=== PATIENT | male | born 1990 | race Hispanic/Latino ===

== ENCOUNTER 2018-05-10 22:09 | Emergency (ER) | payer MEDICARE ==
[2018-05-10] MEDS ORDERED: DEXAMETHASONE SOD PHOSPHATE 10MG/ML 1ML VIAL ONE (23:15)
[2018-05-10] MEDS ORDERED: KETOROLAC TROMETHAMINE 30MG/ML ONE (23:15)
== END 2018-05-10 23:23 | disposition home or self-care (01) ==
LOC: EDH 22:09
DX: M25.511 Pain in right shoulder (principal)
CPT/HCPCS: 96372 ×2; 99284; J1100; J1885

== ENCOUNTER 2025-02-01 12:28 | Emergency (ER) | payer MEDICARE ==
[~2025-02-01] VITALS: Ht 172.7 cm; Wt 95.3 kg
[2025-02-01 12:46] VITALS: PULSE 81
--- NOTE | 2025-02-01 13:58 | ERN ---
ED Note History of Present Illness Stated Complaint: BACK PAIN Chief Complaint: Back Pain or Injury Time Seen by MD: 13:30 Time Seen by Midlevel: 13:31 Dictation: 34-year-old male who presents to the emergency department due to reported having lower back pain that began yesterday. He states that he was in the process of lifting a carriage in an awkward position when he felt the sharp pain. At this time, he rates pain level as a 10/10. Patient denies having any loss of bowel or bladder and maintains a normal neurological function to both lower extremities. He states that the pain is sharp and with a spasm type of sensation. 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 Past Medical History Past Medical History: No Pertinent History Surgical History: Other Surgical History Other: FACE, LEFT SIDE OF ABD PSYCH History: no pertinent psych hx RN Note Reviewed/Agreed w/PFSH: Yes Review of System Dictation MS/Extremity: Back pain Initial Vital Sign VS Vital Signs Date Time Temp Pulse Resp B/P (MAP) Pulse Ox O2 Delivery O2 Flow Rate FiO2 02/01/25 12:30 98.2 81 16 139/77 98 Room Air 0 02/01/25 12:46 21 Physical Exam Dictation General: awake, alert, NAD Head/Face: Normocephalic, atraumatic Eyes: PERRL, EOMI ENT: Oral mucosa moist Neck: Trachea midline, supple Cardiovascular: RRR, no edema Respiratory: Symmetrical, non-labored Abdomen: Soft, non-tender, non-distended, no guarding. Skin: Warm, dry, good turgor, no rash MS/Extremity: Pulses equal, no cyanosis, neurovascular intact, FROM Back:: Bilateral paraspinal tenderness, no vertebral tenderness. Neuro: COAx4, GCS 15, steady gait, Psych: Normal behavior, mood, and affect normal ED Course ED Course Orders Procedure Category Date Status Time Ketorolac 60mg/2ml PHA 02/01/25 Complete (Toradol 60mg/2ml) 14:00 Dexamethasone 4mg/Ml PHA 02/01/25 Complete 1ml Vial (Dexametha 14:00 Current Medications Medications (Trade) Dose Ordered Sig/Daniele Route PRN Reason Start Time Stop Time Status Last Admin Dose Admin Dexamethasone Sodium Phosphate (dexaMETHasone 4MG/ML 1ML VIAL) 8 mg ONCE ONCE IM 02/01/25 14:00 02/01/25 14:01 DC 02/01/25 14:08 Ketorolac Tromethamine (toRADol 60MG/ 2ML) 60 mg ONCE ONCE IM 02/01/25 14:00 02/01/25 14:01 DC 02/01/25 14:07 Vital Signs Date Time Temp Pulse Resp B/P (MAP) Pulse Ox O2 Delivery O2 Flow Rate FiO2 02/01/25 12:46 98.2 81 16 139/77 98 Room Air* 0 21 02/01/25 12:30 98.2 81 16 139/77 98 Room Air 0 Medical Decision Making MDM MDM: Differential diagnosis: Acute low back pain, lumbar back sprain, sciatica. Rationale: Tests considered and ordered secondary to shared decision making include: Previous outside records reviewed: Old ER visits. Risk of complication and/or morbidity or mortality of patient management: None Medications-Per medication reconciliation Need for hospitalization: Patient does not meet criteria for hospitalization. Need for emergency major/minor surgery: No There are no social concerns with this patient. Prescription drug management Prescriptions will include symptomatic care Patient's prior external medical records from other ER visits were reviewed by me as indicated. Prior testing and results from previous visits were reviewed. Prior tests were taken into account with medical decision making and resource utilization, independent historian/historians were used to obtain complete medical history. I independently interpreted the test that were performed, results were reviewed by me and considered findings on radiology if ordered. Medical management and examination interpretation discussions were had by me with other qualified healthcare professionals as indicated for the patient's care. DX & DISP Disposition: Discharge Departure Impression: Primary Impression: Lumbar back sprain Condition: Stable Scripts Ibuprofen (Ibuprofen 800 mg Tab) 800 Mg Tab 1 TAB PO TID for pain for 10 Days, #30 TAB 0 Refills Prov: NÉSTOR SILVA 02/01/25 Cyclobenzaprine HCl (Cyclobenzaprine HCl) 10 Mg Tablet 1 TAB PO TID for muscle spasms for 3 Days, #30 TAB 0 Refills Prov: NÉSTOR SILVA 02/01/25 Referrals: SELF,REFERRAL (PCP) NÉSTOR SILVA Feb 01, 2025 13:58
[2025-02-01] MEDS ORDERED: CYCL-309 PO (14:47)
[2025-02-01] MEDS ORDERED: IBUP-2077 PO (14:47)
[2025-02-01 14:49] VITALS: BP 132/74; RESP 16; TEMP 98.2; O2SAT 98
== END 2025-02-01 15:00 | disposition home or self-care (01) ==
LOC: EDH 12:28
DX: S33.5XXA Sprain of ligaments of lumbar spine, initial encounter (principal); X50.0XXA Overexertion from strenuous movement or load, initial encounter; Y93.89 Activity, other specified; Y92.89 Other specified places as the place of occurrence of the external cause; Y99.8 Other external cause status
CPT/HCPCS: 99284; 96372 ×2; J1885; J1100

== ENCOUNTER 2025-05-06 08:29 | Emergency (ER) | payer MEDICARE ==
[~2025-05-06] VITALS: Ht 172.7 cm; Wt 88.5 kg
[~2025-05-06 08:29] MED LIST: CYCL-309 PO; IBUP-2077 PO
[2025-05-06 08:30] VITALS: BP 138/88; PULSE 94; RESP 18; TEMP 98.4
[2025-05-06 08:51] LABS: APPEARANCE,URINE CLEAR (CLEAR); GLUCOSE, URINE (UA) NEGATIVE (NEGATIVE); LEUKOCYTE ESTERASE ,URINE NEGATIVE Leu/uL (NEGATIVE); NITRATE,URINE NEGATIVE (NEGATIVE); OCCULT BLOOD,URINE NEGATIVE (NEGATIVE)
[2025-05-06 08:53] LABS: ADD UA MICROSCOPIC YES
[2025-05-06 08:54] LABS: SQUAMOUS EPITHELIAL CELL,UR RARE /HPF (0-2)
[2025-05-06] MEDS: AZITHROMYCIN 250 MG TABLET PO STA (09:05)
--- NOTE | 2025-05-06 09:57 | ERN ---
ED Note History of Present Illness Stated Complaint: BLOOD IN URINE Chief Complaint: Blood in Urine: Time Seen by MD: 08:44 Dictation: 35-year-old male presenting to the emergency department with brief episode of blood in urine and concern for STD patient reports she had intercourse last night. Unprotected. No other symptoms Allergies: Coded Allergies: No Known Allergies (Unverified Allergy, Unknown, 02/01/25) Home Meds Active Scripts Ibuprofen (Ibuprofen 800 mg Tab) 800 Mg Tab, 1 TAB PO TID for pain for 10 Days, #30 TAB 0 Refills Prov:NÉSTOR SILVAP 02/01/25 Cyclobenzaprine HCl (Cyclobenzaprine HCl) 10 Mg Tablet, 1 TAB PO TID for muscle spasms for 3 Days, #30 TAB 0 Refills Prov:NÉSTOR SILVA 02/01/25 Past Medical History Past Medical History: No Pertinent History Surgical History: Other Surgical History Other: FACE, LEFT SIDE OF ABD Review of System Dictation Constitutional: Negative for fever,chills, and weight loss Eyes: Negative for injury, pain,redness, and discharge ENT: Negative for injury,pain or swelling Cardiovascular: Negative for chest pain, palpitations, and edema Respiratory: Negative for shortness of breath, cough, and wheezing, Abdomen/GI: Negative for abdominal pain, nausea, vomiting, diarrhea, and constipation Back: Negative for injury and pain : Per HPI MS/Extremity: Negative for injury and deformity Skin: Negative for rash, and discoloration Neuro: Negative for headache, weakness, numbness, tingling, and seizure Psych: Negative for suicide ideation, homicidal ideation, and hallucinations Initial Vital Sign VS Vital Signs Date Time Temp Pulse Resp B/P (MAP) Pulse Ox O2 Delivery O2 Flow Rate FiO2 05/06/25 08:30 98.4 94 18 138/88 98 Room Air Physical Exam Dictation General: awake, alert, NAD Head/Face: Normocephalic, atraumatic Eyes: PERRL, EOMI, vision at baseline ENT: oral cavity clear, TMs clear, no signs of infection Neck: Trachea midline, supple, no nuchal rigidity Cardiovascular: RRR, normal S1/S2, No MRGs, no JVD Respiratory: CTAB, no respiratory distress, No rales or wheezes Abdomen: Soft, non-tender, non-distended, normal bowel sounds, no guarding or rebound. Skin: Warm, dry, normal turgor, no rash MS/Extremity: Pulses equal, no cyanosis, neurovascular intact, FROM Neuro: COAx4, GCS 15, strength 5/5, CN 2-12 intact, normal cerebellar exam, normal gait, Psych: Normal behavior, mood, and affect normal Results (Laboratory/Radiology) Laboratory/Radiology Laboratory Tests Test 05/06/25 08:34 Urine Color YELLOW (YELLOW) Urine Appearance CLEAR (CLEAR) Urine pH 5.5 (5.0-8.0) Urine Specific [place] 1.027 (1.001-1.031) Urine Protein 10 mg/dL (NEGATIVE) H Urine Glucose (UA) NEGATIVE mg/dL (NEGATIVE) Urine Ketones NEGATIVE mg/dL (NEGATIVE) Urine Occult Blood NEGATIVE (NEGATIVE) Urine Nitrate NEGATIVE (NEGATIVE) Urine Bilirubin NEGATIVE mg/dL (NEGATIVE) Urine Urobilinogen 0.2 mg/dL (0.2-1.0) Urine Leukocyte Esterase NEGATIVE Alcon/uL Urine RBC 2-5 /HPF (0-1) H Urine WBC 2-5 /HPF (0-1) H Urine Squamous Epithelial Cells RARE /HPF (0-2) Urine Bacteria None /HPF (None Seen) Labs Reviewed?: Yes ED Course ED Course Orders Procedure Category Date Status Time Urinalysis Profile LAB 05/06/25 Complete 08:44 Chlamydia & Gc Pcr MASSIEL 05/06/25 In Process 08:44 Ceftriaxone 1g Vial PHA 05/06/25 Complete (Rocephine 1g Inj) 08:44 Azithromycin PHA 05/06/25 Complete (Zithromax) 08:44 Current Medications Medications (Trade) Dose Ordered Sig/Daniele Route PRN Reason Start Time Stop Time Status Last Admin Dose Admin Azithromycin (Zithromax) 1,000 mg ONCE STAT PO 05/06/25 08:44 05/06/25 08:52 DC 05/06/25 09:05 Ceftriaxone Sodium (ROCEphine 1G INJ) 1 gm ONCE STAT IM 05/06/25 08:44 05/06/25 08:52 DC 05/06/25 09:05 Vital Signs Date Time Temp Pulse Resp B/P (MAP) Pulse Ox O2 Delivery O2 Flow Rate FiO2 05/06/25 08:30 98.4 94 18 138/88 98 Room Air Medical Decision Making MDM MDM: Differential diagnosis: Rationale: Tests considered and ordered secondary to shared decision making include: Previous outside records reviewed: Old ER visits. Risk of complication and/or morbidity or mortality of patient management: None Medications-Per medication reconciliation Need for hospitalization: Patient does not meet criteria for hospitalization. Need for emergency major/minor surgery: No There are no social concerns with this patient. Prescription drug management Prescriptions will include symptomatic care Patient's prior external medical records from other ER visits were reviewed by me as indicated. Prior testing and results from previous visits were reviewed. Prior tests were taken into account with medical decision making and resource utilization, independent historian/historians were used to obtain complete medical history. I independently interpreted the test that were performed, results were reviewed by me and considered findings on radiology if ordered. Medical management and examination interpretation discussions were had by me with other qualified healthcare professionals as indicated for the patient's care. 35-year-old urethritis stable exam stable UA cover for GC pending results. DX & DISP Disposition: Discharge Departure Impression: Primary Impression: Dysuria Condition: Stable Referrals: SELF,REFERRAL (PCP) FLO BOB MD May 06, 2025 09:57
== END 2025-05-06 10:10 | disposition home or self-care (01) ==
LOC: EDH 08:29
DX: R30.0 Dysuria (principal); R31.9 Hematuria, unspecified; Z79.1 Long term (current) use of non-steroidal anti-inflammatories (NSAID); Z79.899 Other long term (current) drug therapy
CPT/HCPCS: 99283; 87491; 87591; 81001; 96372; J0696